=== PATIENT | male | born 1995 | race Caucasian/White ===

== ENCOUNTER 2020-01-04 12:08 | Emergency (ER) | payer BC ==
[~2020-01-04] VITALS: Ht 182.9 cm; Wt 110.9 kg
[2020-01-04 12:11] VITALS: BP 170/95
== END 2020-01-04 12:48 | disposition home or self-care (01) ==
LOC: ED 12:30
DX: R11.2 Nausea with vomiting, unspecified (principal); R19.7 Diarrhea, unspecified
CPT/HCPCS: 99281